=== PATIENT | male | born 1960 | race Caucasian/White ===

== ENCOUNTER 2023-01-04 12:46 | Outpatient (CLI) | payer OTHER ==
--- NOTE | 2023-01-04 16:26 | XRAY Report ---
PROCEDURE: Shoulder 3 View BILAT INDICATIONS: BILATERALSHOULDER PAIN TECHNIQUE: 3 views each of the right and left shoulders. COMPARISON: None. FINDINGS: Bones: No acute fractures or dislocations. No suspicious bony lesions. Visualized ribs appear inta ct. Moderate degenerative changes are seen in the acromioclavicular joints bilaterally. Mild glenohum eral osteoporosis. Soft tissues: No suspicious soft tissue calcifications. The visualized lungs are within normal limi ts. 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 Reviewed by: Michele Daniels MD on 01/04/2023 4:25 PM PDT Approved by: Michele Daniels MD on 01/04/2023 4:25 PM PDT Station ID: [id number]
== END 2023-01-04 12:47 | disposition home or self-care (01) ==
LOC: DI 12:46
PROVIDERS: ATTEND Internal Medicine
DX: M19.012 Primary osteoarthritis, left shoulder (principal); M19.011 Primary osteoarthritis, right shoulder